=== PATIENT | female | born 1970 | race Two or more races ===

== ENCOUNTER → 2024-05-17 | Outpatient (CLI) | payer MEDICAID ==
[~2024-05-17] VITALS: Ht 167.6 cm; Wt 68.0 kg
== END | disposition home or self-care (01) ==
LOC: Rad HDHVI 14:30
PROVIDERS: ATTEND Internal Medicine Cardiovascular Disease
DX: I08.0 Rheumatic disorders of both mitral and aortic valves (principal); R07.89 Other chest pain; R06.02 Shortness of breath; E78.00 Pure hypercholesterolemia, unspecified; R42 Dizziness and giddiness; F17.210 Nicotine dependence, cigarettes, uncomplicated
CPT/HCPCS: 78452; 93017; 93306; 96374; A9500

== ENCOUNTER → 2024-05-18 | Outpatient (CLI) | payer MEDICAID | END | disposition home or self-care (01) | LOC: Rad HDHVI 14:10 | PROVIDERS: ATTEND Internal Medicine Cardiovascular Disease | DX: I10 Essential (primary) hypertension (principal); E78.5 Hyperlipidemia, unspecified; Z87.891 Personal history of nicotine dependence | CPT/HCPCS: 93880 ==

== ENCOUNTER → 2024-06-15 | Outpatient (CLI) | payer MEDICAID ==
[~2024-06-15] MED LIST: IODIXANOL 320MG/ML 100ML BTL IV ONE; SUMA50TA16 PO
[2024-06-15 08:57] VITALS: BP 144/80; PULSE 78; RESP 16; O2SAT 98
[2024-06-15 09:09] VITALS: BP 131/76; PULSE 73; RESP 16; O2SAT 98
== END | disposition home or self-care (01) ==
LOC: Rad HDHVI 08:54
PROVIDERS: ATTEND Internal Medicine Cardiovascular Disease
DX: R07.89 Other chest pain (principal); I50.9 Heart failure, unspecified
CPT/HCPCS: 71046; 93005; G0463

== ENCOUNTER 2024-06-16 10:49 | Day surgery (SDC) | payer MEDICAID ==
[2024-06-15 10:39] LABS: Basophils # (auto) 0 10 ^3/uL (0-0.2); Basophils % (auto) 0.4 % (0.0-2.0); Eosinophils # (auto) 0.2 10 ^3/uL (0-0.8); Eosinophils % (auto) 2.4 % (0.0-7.0); Hemoglobin 14.9 g/dL (12.2-16.2); Lymphocytes # (auto) 3.3 10 ^3/uL (0.4-5.4); Lymphocytes % (auto) 31.7 % (10.0-50.0); Mean Corpuscular Hemoglobin 33.5 pg (28.0-32.0); Mean Corpuscular Hgb Conc. 34.7 g/dL (32.0-36.0); Mean Corpuscular Volume 96.5 fL (80.0-100.0); Monocytes # (auto) 0.8 10 ^3/uL (0-1.3); Monocytes % (auto) 7.7 % (0.0-12.0); Neutrophils % (auto) 57.8 % (37.0-80.0); Red Blood Cells 4.45 10^6/uL (4.0-5.20); Red Cell Distribution Width 13.9 % (11.8-14.3); White Blood Cell 10.4 10^3/uL (4.4-10.8)
[2024-06-15 10:54] LABS: INR 0.95 (0.9-1.15); Partial Thromboplastin Time 26.9 SEC (24.5-34.5); Prothrombin Time 10.1 sec (9.3-11.8)
[2024-06-15 11:12] LABS: Anion Gap 6 (5-15); Calcium 10.2 mg/dL (8.7-10.4); Carbon Dioxide 25 mmol/L (20-30); Chloride 106 mmol/L (98-107); Potassium 4.4 mmol/L (3.5-5.1); Sodium 137 mmol/L (136-145)
[2024-06-15 11:18] LABS: BUN/Creatinine Ratio 18.1 (10.0-20.0); Blood Urea Nitrogen 15 mg/dL (9-23); Glucose 95 mg/dL (74-106)
[~2024-06-16] VITALS: Ht 167.6 cm; Wt 66.7 kg
[2024-06-16] VITALS (7 sets, daily range): BP systolic 133–168; BP diastolic 54–77; PULSE 53–72; RESP 14–17; TEMP 98; O2SAT 95–99
[2024-06-16] MEDS ORDERED: HEPARIN IN NS 1000Units/500mL 1,500 ML ONE (11:11)
[2024-06-16] MEDS ORDERED: IODIXANOL 320MG/ML 100ML BTL IV ONE (11:11)
[2024-06-16] MEDS ORDERED: fentaNYL CITRATE 100 MCG/2 ML VL ONE (11:48)
[2024-06-16] MEDS ORDERED: LIDOCAINE 2%HCL (LOCAL ANESTH.) INJ 20ML MDV ONE (11:48)
[2024-06-16] MEDS ORDERED: MIDAZOLAM HCL 2MG/2ML 2ml VIAL (1mg/ml) ONE (11:48)
[2024-06-16] MEDS ORDERED: ANGIOMAX 250 MG VIAL IV ONE (11:48)
[2024-06-16] MEDS ORDERED: IOHEXOL 350 MG/ML 100ML IJ ONE (11:48)
[2024-06-16] MEDS ORDERED: SUMA50TA16 PO (13:02)
[2024-06-16] MEDS: SUMAtriptan SUCCINATE 25 MG TAB PO PRN (14:05)
== END 2024-06-16 14:18 | disposition home or self-care (01) ==
LOC: CATH 10:49
PROVIDERS: ATTEND Internal Medicine Cardiovascular Disease
DX: R07.9 Chest pain, unspecified (principal); I11.0 Hypertensive heart disease with heart failure; I50.1 Left ventricular failure, unspecified; I07.1 Rheumatic tricuspid insufficiency; I42.8 Other cardiomyopathies; R06.09 Other forms of dyspnea; J44.9 Chronic obstructive pulmonary disease, unspecified; Z72.0 Tobacco use
CPT/HCPCS: 36415; 80048; 85025; 85610; 85730; 93458; C1760; C1894; J1644; J2250; J3010; J7030; Q9967; 99152

== ENCOUNTER → 2024-08-02 | Outpatient (CLI) | payer MEDICAID ==
[~2024-08-02] MED LIST changes: +ATOR20TA50 PO; +ATOR40TA52 PO; +CARV6.2517 PO; +CHOL20007 PO; +CLIN1CAP70 PO; +EPIN0.1I11 IJ; +FURO20TA4 GT; +HYDR-4798 PO; -IODIXANOL 320MG/ML 100ML BTL IV ONE; +POM; +POTA-215 PO
[2024-08-02 09:30] VITALS: BP 124/76; PULSE 71; RESP 16; O2SAT 98
[2024-08-02 09:54] VITALS: BP 132/75; PULSE 62; RESP 18; O2SAT 98
== END | disposition home or self-care (01) ==
LOC: Rad HDHVI 09:15
PROVIDERS: ATTEND Internal Medicine Cardiovascular Disease
DX: Z01.818 Encounter for other preprocedural examination (principal); I42.9 Cardiomyopathy, unspecified
CPT/HCPCS: 71046; 93005; G0463

== ENCOUNTER 2024-08-04 08:33 | Day surgery (SDC) | payer MEDICAID ==
[2024-08-02 12:44] LABS: Basophils # (auto) 0 10 ^3/uL (0-0.2); Eosinophils # (auto) 0.2 10 ^3/uL (0-0.8); Lymphocytes # (auto) 2.8 10 ^3/uL (0.4-5.4); Mean Corpuscular Volume 97.2 fL (80.0-100.0); Monocytes # (auto) 0.6 10 ^3/uL (0-1.3)
[2024-08-02 12:57] LABS: INR 1.02 (0.9-1.15); Partial Thromboplastin Time 27.4 SEC (24.5-34.5); Prothrombin Time 10.8 sec (9.3-11.8)
[2024-08-02 13:04] LABS: Anion Gap 5 (5-15); Carbon Dioxide 29 mmol/L (20-30); Chloride 107 mmol/L (98-107); Potassium 4.8 mmol/L (3.5-5.1); Sodium 141 mmol/L (136-145)
[2024-08-02 13:06] LABS: Calcium 10.5 mg/dL (8.7-10.4)
[2024-08-02 13:10] LABS: BUN/Creatinine Ratio 13.9 (10.0-20.0); Blood Urea Nitrogen 15 mg/dL (9-23); Glucose 85 mg/dL (74-106)
[2024-08-02 13:14] LABS: Basophils % (auto) 0.4 % (0.0-2.0); Eosinophils % (auto) 1.9 % (0.0-7.0); Hematocrit 44.8 % (36.0-46.0); Lymphocytes % (auto) 31.6 % (10.0-50.0); Mean Corpuscular Hemoglobin 34.8 pg (28.0-32.0); Mean Corpuscular Hgb Conc. 35.8 g/dL (32.0-36.0); Neutrophils # (auto) 5.2 10 ^3/uL (1.6-8.6); Neutrophils % (auto) 59.1 % (37.0-80.0); Nucleated Red Blood Cells % 0.1 %; Platelet Count (auto) 297 10^3/uL (140-450); Red Blood Cells 4.61 10^6/uL (4.0-5.20); Red Cell Distribution Width 13.4 % (11.8-14.3); White Blood Cell 8.7 10^3/uL (4.4-10.8)
[~2024-08-04] VITALS: Ht 167.6 cm; Wt 70.3 kg
[~2024-08-04 08:33] MED LIST changes: -ATOR40TA52 PO; -CLIN1CAP70 PO; -EPIN0.1I11 IJ; -HYDR-4798 PO
[2024-08-04] MEDS: VANCOMYCIN 1GM/200ML 200 ML IV ONE (09:27)
[2024-08-04] MEDS ORDERED: VANCOMYCIN HCL 1000 MG VL ONE (10:20)
[2024-08-04] MEDS ORDERED: LIDOCAINE 2%HCL (LOCAL ANESTH.) INJ 20ML MDV ONE (10:21)
[2024-08-04] MEDS ORDERED: MIDAZOLAM HCL 2MG/2ML 2ml VIAL (1mg/ml) ONE (10:21)
[2024-08-04] MEDS ORDERED: IODIXANOL 320MG/ML 100ML BTL IV ONE (10:21)
[2024-08-04] MEDS ORDERED: fentaNYL CITRATE 100 MCG/2 ML VL ONE (10:21)
[2024-08-04] MEDS ORDERED: FUROSEMIDE 20 MG/2 ML VIAL ONE (11:04)
[2024-08-04] MEDS ORDERED: HYDROmorphone HCL 2 MG/ML VL/or syr ONE (11:07)
[2024-08-04 11:30] VITALS: BP 143/84; PULSE 74; RESP 18; O2SAT 93
[2024-08-04 11:45] VITALS: BP 141/76; PULSE 74; RESP 20; O2SAT 94
[2024-08-04 12:00] VITALS: BP 131/71; PULSE 61; RESP 14; O2SAT 93
[2024-08-04 12:15] VITALS: BP 132/81; PULSE 69; RESP 15; O2SAT 94
[2024-08-04 12:30] VITALS: BP 127/82; PULSE 61; RESP 15; O2SAT 94
[2024-08-04 13:00] VITALS: BP 146/85; PULSE 64; RESP 15; O2SAT 98
== END 2024-08-04 13:14 | disposition home or self-care (01) ==
LOC: CATH 08:33
PROVIDERS: ATTEND Internal Medicine Cardiovascular Disease
DX: I42.0 Dilated cardiomyopathy (principal); I25.5 Ischemic cardiomyopathy; I11.0 Hypertensive heart disease with heart failure; I50.20 Unspecified systolic (congestive) heart failure
CPT/HCPCS: 33225; 33249; 36415; 71045; 80048; 85025; 85610; 85730; 93005; C1730; C1769; C1882; C1887; C1894; C1895; C1898; C1900; J1170; J1940; J2250; J3010; J3370; J7030; Q9967; 99152; 99153

== ENCOUNTER → 2024-08-05 | Outpatient (CLI) | payer MEDICAID ==
[~2024-08-05] MED LIST changes: +CLIN1CAP70 PO; +HYDR-4798 PO
== END | disposition home or self-care (01) ==
LOC: Rad HDHVI 10:20
PROVIDERS: ATTEND Internal Medicine Cardiovascular Disease
DX: Z01.818 Encounter for other preprocedural examination (principal); R06.02 Shortness of breath
CPT/HCPCS: 71046

== ENCOUNTER 2024-08-07 20:06 | Emergency (ER) | payer MEDICAID ==
[~2024-08-07] VITALS: Ht 167.6 cm; Wt 69.8 kg
[~2024-08-07 20:06] MED LIST changes: +ATOR40TA52 PO; -CLIN1CAP70 PO; +EPIN0.1I11 IJ; -HYDR-4798 PO
[2024-08-08 00:50] VITALS: BP 135/84; PULSE 74; RESP 17; TEMP 98.2; O2SAT 98
[2024-08-08] MEDS: HYDROcodone-ACET 10/325MG TAB PO ONE (01:23)
[2024-08-08] MEDS ORDERED: HYDR-4798 PO (02:16)
[2024-08-08] MEDS ORDERED: CLIN1CAP70 PO (02:16)
== END 2024-08-08 02:33 | disposition home or self-care (01) ==
LOC: ER 20:06
DX: S20.02XA Contusion of left breast, initial encounter (principal); N63.21 Unspecified lump in the left breast, upper outer quadrant; I50.9 Heart failure, unspecified; Z95.810 Presence of automatic (implantable) cardiac defibrillator; Z98.890 Other specified postprocedural states; Z88.0 Allergy status to penicillin; Z88.8 Allergy status to other drugs, medicaments and biological substances; Z79.899 Other long term (current) drug therapy; X58.XXXA Exposure to other specified factors, initial encounter; Y93.89 Activity, other specified; Y92.89 Other specified places as the place of occurrence of the external cause; Y99.8 Other external cause status
CPT/HCPCS: 76642

== ENCOUNTER → 2024-08-29 | Outpatient (CLI) | payer MEDICAID ==
[~2024-08-29] MED LIST changes: -ATOR40TA52 PO; +CLIN1CAP70 PO; -EPIN0.1I11 IJ; +HYDR-4798 PO
== END | disposition home or self-care (01) ==
LOC: Rad HDHVI 12:08
PROVIDERS: ATTEND Internal Medicine Cardiovascular Disease
DX: R06.02 Shortness of breath (principal); Z79.899 Other long term (current) drug therapy
CPT/HCPCS: 71046

== ENCOUNTER → 2024-11-14 | Outpatient (CLI) | payer MEDICAID ==
[~2024-11-14] MED LIST changes: +ATEN-60 PO; +FURO40TA4 PO; +LEVO500T91 PO; +PRED20TA2 PO
[2024-11-14 13:20] VITALS: BP 119/71; PULSE 83; RESP 18; O2SAT 92
[2024-11-14 13:25] VITALS: BP 120/69; PULSE 84; RESP 17; O2SAT 93
--- NOTE | 2024-11-14 14:21 | DVH ---
XY CHEST TWO VIEWS ROUTINE CLINICAL HISTORY: PRE OP/pain COMPARISON: XY CHEST TWO VIEWS ROUTINE on DOS: 08/29/24, XY CHEST TWO VIEWS ROUTINE on DOS: 08/19/24, X Y CHEST TWO VIEWS ROUTINE on DOS: 08/05/24, XY CHEST TWO VIEWS ROUTINE on DOS: 08/02/24, XY CHEST TWO V IEWS ROUTINE on DOS: 06/15/24 TECHNIQUE: Frontal and lateral view of the chest was obtained FINDINGS: Lines and Tubes: Left pacemaker. Lungs: No focal consolidation. Pleura: No effusion. No pneumothorax. Cardiomediastinal contours: Unremarkable Bones: No acute osseous abnormality. IMPRESSION: No acute cardiopulmonary disease.
== END | disposition home or self-care (01) ==
LOC: Rad HDHVI 13:08
PROVIDERS: ATTEND Internal Medicine Cardiovascular Disease
DX: Z01.818 Encounter for other preprocedural examination (principal); T82.120A Displacement of cardiac electrode, initial encounter; Y92.89 Other specified places as the place of occurrence of the external cause
CPT/HCPCS: 71046; 93005; G0463

== ENCOUNTER 2024-11-17 06:36 | Day surgery (SDC) | payer MEDICAID ==
[2024-11-14 15:54] LABS: Basophils # (auto) 0.1 10 ^3/uL (0-0.2); Basophils % (auto) 0.7 % (0.0-2.0); Eosinophils # (auto) 0.3 10 ^3/uL (0-0.8); Eosinophils % (auto) 3.4 % (0.0-7.0); Hematocrit 44.1 % (36.0-46.0); Hemoglobin 15.2 g/dL (12.2-16.2); Lymphocytes # (auto) 3.4 10 ^3/uL (0.4-5.4); Lymphocytes % (auto) 41.8 % (10.0-50.0); Mean Corpuscular Hemoglobin 33.3 pg (28.0-32.0); Mean Corpuscular Hgb Conc. 34.5 g/dL (32.0-36.0); Mean Corpuscular Volume 96.7 fL (80.0-100.0); Monocytes # (auto) 0.7 10 ^3/uL (0-1.3); Monocytes % (auto) 8.4 % (0.0-12.0); Neutrophils # (auto) 3.7 10 ^3/uL (1.6-8.6); Neutrophils % (auto) 45.7 % (37.0-80.0); Nucleated Red Blood Cells % 0.2 %; Platelet Count (auto) 241 10^3/uL (140-450); Red Blood Cells 4.56 10^6/uL (4.0-5.20); Red Cell Distribution Width 13.8 % (11.8-14.3)
[2024-11-14 16:31] LABS: INR 1.01 (0.9-1.15); Partial Thromboplastin Time 27.2 SEC (24.5-34.5); Potassium 4.8 mmol/L (3.5-5.1); Prothrombin Time 10.7 sec (9.3-11.8); Sodium 141 mmol/L (136-145)
[2024-11-14 16:32] LABS: Anion Gap 7 (5-15); Carbon Dioxide 26 mmol/L (20-31)
[2024-11-14 16:37] LABS: BUN/Creatinine Ratio 17.1 (10.0-20.0); Blood Urea Nitrogen 18 mg/dL (9-23); Glucose 91 mg/dL (74-106)
[2024-11-14 16:49] LABS: Calcium 10.5 mg/dL (8.7-10.4); Chloride 108 mmol/L (98-107)
[2024-11-17] VITALS (7 sets, daily range): BP systolic 99–130; BP diastolic 55–82; PULSE 56–78; RESP 11–15; TEMP 98.1; O2SAT 90–99
[~2024-11-17] VITALS: Ht 167.6 cm; Wt 69.4 kg
[~2024-11-17 06:36] MED LIST changes: -CARV6.2517 PO; -CLIN1CAP70 PO; -HYDR-4798 PO; -LEVO500T91 PO
[2024-11-17] MEDS ORDERED: fentaNYL CITRATE 100 MCG/2 ML VL ONE (09:20)
[2024-11-17] MEDS ORDERED: MIDAZOLAM HCL 2MG/2ML 2ml VIAL (1mg/ml) ONE ×2 (09:20→10:38)
[2024-11-17] MEDS ORDERED: VANCOMYCIN HCL 1000 MG VL ONE (09:20)
[2024-11-17] MEDS ORDERED: VANCOMYCIN 1GM/250ML KIT 250 ML IV ONE (09:21)
[2024-11-17] MEDS ORDERED: LIDOCAINE 2%HCL (LOCAL ANESTH.) INJ 20ML MDV ONE ×3 (09:21→10:04)
[2024-11-17] MEDS ORDERED: HYDROmorphone HCL 2 MG/ML VL/or syr ONE (10:00)
[2024-11-17] MEDS ORDERED: IOHEXOL 350 MG/ML 100ML IJ ONE (10:23)
[2024-11-17] MEDS ORDERED: ceFAZolin 1GM VL ONE (10:49)
[2024-11-17] MEDS ORDERED: diphenhdrAMINE HCL 50 MG/1 ML VL ONE (11:28)
[2024-11-17] MEDS ORDERED: methylPREDNISolone SOD SUCC 40 MG/ML VL ONE (11:33)
[2024-11-17] MEDS: methylPREDNISolone SOD SUCC 40 MG/ML VL IV ONE (11:36)
[2024-11-17] MEDS: diphenhdrAMINE HCL 50 MG/1 ML VL IV ONE (11:37)
--- NOTE | 2024-11-17 12:11 | DVH ---
EXAM: XY CHEST PORTABLE Indication: S/P ICD LEAD REVISION Technique: Single frontal view of the chest was obtained Comparison: XY CHEST PORTABLE on DOS: 08/04/24 FINDINGS: Lines and Tubes: Cardiac pacemaker projects over left chest wall. Lungs: No focal consolidation. Pleura: No effusion. No pneumothorax. Cardiomediastinal contours: Unremarkable Bones: No acute osseous abnormality. IMPRESSION: No acute cardiopulmonary disease.
--- NOTE | 2024-11-17 12:16 | DVHOP ---
DATE OF SURGERY: 11/17/2024 PROCEDURES PERFORMED: * Venography. * Extraction of the LV lead and implantation of new LV lead. * Repositioning of the RV lead shock lead. * Repositioning of the RA lead. * Conscious sedation. INDICATIONS: The patient with dilated cardiomyopathy, EF less than 30%, had undergone Bi-V AICD implantation on 08/04/2024. The leads were secured adequately, but over a month the leads were all retracted. On examining the leads closely and while revising the pocket and the lead, it became very clear that the patient has been manipulating the leads. The tremendous amount of tension was noted in the leads at the time of extraction. Once the sutures were cut, the leads recoiled back into the appropriate position, leading to believe the patient has been retracting the lead manually. Furthermore, it became clear that the LV lead especially has been twisted multiple times, so much so that we were not able to pass a wire or the stylet into the lead at the time of the repositioning. Therefore the LV lead needed to be extracted and a new LV lead needed to be positioned. This is indicative of the patient manipulating and twisting the leads. The patient is very noncompliant. She has been seen in the clinic almost 10 times since her implantation of the lead in 07/2024. Not only in the clinic, she has also been seen in the Emergency Room several occasion for unclear reasons. Because of her manipulating the pacemaker and the leads, the patient may have even had shocks delivered because of inappropriate sensing. DESCRIPTION OF PROCEDURE: The patient was prepped and draped in a sterile condition. 1% Xylocaine used to anesthetize the left subclavicular region. Once adequate anesthesia was attained, almost 50 mL of subcutaneous lidocaine was given because the patient was having significant intolerance to pain. The venography was performed. The left subclavian vein was engaged. A guidewire was then appropriately positioned. Using a #10 blade, linear incision was made using blunt dissection and electrocautery. The pocket was exposed. The leads were exposed as well. We were then slowly repositioned the RV lead. The moment, RV lead suture was released, the patient's RV lead recoiled back into appropriate position, clearly demonstrating significant tension that was put on the lead. Similarly with the RA lead, once the sutures were removed, the lead sprung back into appropriate position. Again, indicative of the tremendous tension being placed on the lead from physical manipulation of the lead by the patient. The RA lead on the other hand was extremely twisted when we released and therefore we had to put a new RA lead and because of the damage to the insulation and we were not able to pass any stylet nor will be able to pass any 014 wire through the lead. The lead was extracted with countertraction. Coronary sinus catheters were placed via a 10.5-Kinyarwanda sheath and coronary sinus was cannulated. New LV lead then appropriately positioned. All leads were then resecured with three sutures on each of the lead, to prevent this retraction. Threshold parameters obtained. The sutures we used were 0 Ethibond. Following that, the pacemaker device was then reimplanted. Pocket was irrigated and it was closed using 3-0 Monoderm subcutaneous sutures and 3-0 Monoderm subcuticular sutures. The device itself were again reinforced using chest pressure device. So that she will not acutely be able to manipulate the leads. IV Ancef 1 gram was installed into the pocket itself again to reduce the risk of infection because I am convinced that she will again manipulate the lead and the higher risk of infection, the patient also will be put on antibiotics as well. CONCLUSION: The patient had repositioning the RV lead, RA lead, extraction of the LV lead and implantation new LV lead. The patient, however, had the same device implanted. There were no complications. The patient tolerated the procedure well. THRESHOLD PARAMETERS: The patient's atrial lead was Solia S45, model #[id number]. RV lead is Plexa SD 65-18, serial #[id number]. LV lead that was explanted Sentus QP 85, serial #[id number]. The new LV lead implanted is Sentus ProMRI OTW L85. Model #289931, serial #[id number]. The device is Rivacor 7 HF-T QP [id number]. Threshold parameters of atrium, P-wave amplitude of 2.5 millivolts, threshold of 1.4 volts at 0.4 milliseconds pulse duration, pacing impedance of 615 ohms. Right ventricular lead, R-wave amplitude of 18.4 millivolts, threshold of 0.9 volts at 0.4 milliseconds pulse duration, pacing impedance of 539 ohms, shocking impedance of 42 ohms. LV lead, R-wave amplitude of 9.0 millivolts, threshold of 1.9 volts at 1 millisecond, pacing impedance of 637 ohms. CONCLUSION: The patient has successful implantation of Bi-V AICD extraction of LV lead, implantation of new LV lead. Ton Francisco MD SA/DEANA TID: [id number] RECEIPT: [id number]
--- NOTE | 2024-11-17 13:12 | DVHDS ---
DATE OF DISCHARGE: 11/17/2024 DISCHARGE DIAGNOSIS: The patient with explantation LV lead and implantation new LV lead. Repositioning of the RV and RA leads. It became obvious the patient has been manipulating the pacemaker device. Tremendous tension has been noted on the leads. When we relieved the suture, the leads all sprung back into position and therefore very little manipulation of the RV and RA lead was needed to reposition the leads. The leads were then again sutured 3 times with 0 Ethibond. LV lead on the other hand was twisted so many times that it had damaged and we were not able to pass any stylet or 0.014 wires into the lead. Therefore, we had to extract the lead. Following that, a new LV lead was then implanted. Threshold parameters obtained. The patient's pacemaker/AICD is just a backup mode at this point, since the patient is not dependent on the device, and since the patient has a tendency to manipulate the leads, we elected to put the pacemaker/AICD in a backup mode even though she has a Bi-V. Adequate antibiotics have been given to the patient for 7 weeks to avoid any infection. Pressure device was placed so that she would not manipulate the leads or other device acutely. At least for a week, the pressure device will be left on. Follow up with me in 1 week. Stable at the time of discharge. DISPOSITION: Home. ACTIVITY: As instructed. DIET: Will be 2 gram sodium diet. The patient is to continue all home medication except for any anticoagulation and the patient will be put on Levaquin 500 daily x 7 days. Ton Francisco MD SA/SAMMY/EMRE TID: [id number] RECEIPT: [id number]
[2024-11-17] MEDS ORDERED: LEVO500T91 PO (14:27)
--- NOTE | 2024-11-17 18:09 | DVHHP ---
ADMIT DATE: 11/17/2024 HISTORY OF PRESENT ILLNESS: The patient who is 53 years old with a history of dilated cardiomyopathy, normal coronary anatomy, ejection-fraction of 30%. The patient has been admitted on numerous occasions since the implantation of the Bi-V AICD to the Emergency Room and has also been seen on numerous occasions in the clinic as well. Initially after the device was implanted, she was complaining there was an infection. There was no infection in the lead nor in the pocket, nor in the skin. Empirically, the patient was put on antibiotics. Since the device was implanted, she has been complaining of many issues including chest pain, palpitations and device shocking. Every time we have seen initially about a month after the device was placed, the LV lead was displaced. Then following that, there was retraction of the RV lead and RA leads noted on chest x-ray as well. It is clear that the patient has been manipulating the leads for this malfunction. She is very noncompliant. She is drug seeking as well. The patient has been seen and set in [facility] numerous occasions, she has actually been admitted as well and now she is insistent on replacing the lead because psychologically she is convinced that the LV lead not being in position and is causing her symptoms. The LV lead parameters have been discontinued or switched off and therefore, there is no reason for her to have any irritation. There were no PVCs, PACs documented. The lead was still in the coronary sinus, and therefore, there is no chance of any irritability from the coronary sinus lead in itself. This is psychologically, the patient is convinced that was causing her chest pain and because of that, we elected to reposition again the RV lead and the LV lead since they also appeared to be retracted, although they are functioning appropriately. PERTINENT MEDICAL HISTORY: Significant for tobacco use, COPD. Echocardiogram shows ejection fraction of 30%. She denies any fever or chills, melena, hematochezia, hematemesis, hemoptysis. She had one episode of apparent shock delivered by the device. Also chest pain, shortness of breath, palpitations. All evaluation has been negative. Evaluating the permanent AICD at the time of the palpitations revealed no SVT or VT and strokes have always been negative. Coronary angiography showed normal coronary anatomy, therefore, unlikely to have chest pain related to coronary artery disease. She has in fact complained to the insurance company that we were not paying attention to her. Despite the fact that she has been seen in the clinic almost 10 times almost on a weekly basis initially for apparent infection, which she did not have, subsequently for chest pain and palpitation. Multiple ER visits in addition to clinic visits. PHYSICAL EXAMINATION: VITAL SIGNS: Blood pressure is 132/80, pulse of 70 and regular, O2 saturation 98%. HEENT/NECK: Pupils are equal, reactive. Neck is supple. Carotid pulses are 2+ symmetrical. Sclerae anicteric. Oral mucosa moist. Posterior pharynx without any exudate. No nuchal rigidity. Carotid pulses are 2+ symmetrical. No cervical adenopathy, no supraclavicular adenopathy. PULMONARY: Diffuse scattered rhonchi. Otherwise, unremarkable. CARDIOVASCULAR: Regular rate. PMI is slightly diffuse, laterally and inferiorly displaced. ABDOMEN: Soft. No epigastric tenderness, no suprapubic tenderness, no CVA tenderness. Stool guaiac negative. NEUROLOGIC: The patient is intact. ASSESSMENT AND PLAN: Thus, the patient with dilated cardiomyopathy, history of chronic obstructive pulmonary disease, tobacco use, now with displaced LV lead and retracted RV lead and RA lead, although RV and RA leads have still normal function. The patient is to undergo revision and extraction of the LV lead and implantation of new LV lead if we are not able to reposition the LV lead. We will try to reposition the RV lead and RA lead. All it needs is . We will make further recommendations after the procedure. Ton Francisco MD SA/BRAD/GUERITA TID: [id number] RECEIPT: [id number]
--- NOTE | 2024-11-21 14:02 | ECG ---
[facility] Test Date: 2024-11-17 Test Time: 11:15:16 Pat Name: ISAK MALCOLM Department: Room: Gender: F Emergency Room Physician: Amanuel GRAF : 1970 Requested By: ISIDORO FERRER Order Number: [id number] Reading MD: Magdalena Barry Measurements Intervals [place] Rate: 80 P: 70 [place]: 142 QRS: 6 QRSD: 104 T: 57 QT: 412 QTc: 475 Interpretive Statements Electronic ventricular pacemaker Normal sinus rhythm Electronically Signed On 11-21-2024 22:07:36 PST by Magdalena Barry Please click the below link to view image of tracing.
== END 2024-11-17 13:05 | disposition home or self-care (01) ==
LOC: CATH 06:36
PROVIDERS: ATTEND Internal Medicine Cardiovascular Disease
DX: T82.120A Displacement of cardiac electrode, initial encounter (principal); I42.0 Dilated cardiomyopathy; R79.1 Abnormal coagulation profile; I10 Essential (primary) hypertension; J44.9 Chronic obstructive pulmonary disease, unspecified; Z72.0 Tobacco use; Z95.810 Presence of automatic (implantable) cardiac defibrillator; Z88.0 Allergy status to penicillin; Z88.5 Allergy status to narcotic agent; Z88.8 Allergy status to other drugs, medicaments and biological substances; Y84.9 Medical procedure, unspecified as the cause of abnormal reaction of the patient, or of later complication, without mention of misadventure at the time of the procedure
CPT/HCPCS: 33216; 33244; 33273; 36415; 71045; 80048; 85025; 85610; 85730; 93005; C1769; C1887; C1900; J0690; J1171; J1200; J2250; J2919; J3010; J3370; Q9967; 99152; 99153

== ENCOUNTER → 2024-11-18 | Outpatient (CLI) | payer MEDICAID ==
[~2024-11-18] MED LIST changes: +CARV6.2517 PO; +LEVO500T91 PO
--- NOTE | 2024-11-18 13:38 | DVH ---
EXAM: XY CHEST TWO VIEWS ROUTINE CLINICAL HISTORY: POST OP SOB COMPARISON: XY CHEST TWO VIEWS ROUTINE on DOS: 11/14/24, XY CHEST TWO VIEWS ROUTINE on DOS: 08/29/24, XY CHEST TWO VIEWS ROUTINE on DOS: 08/19/24, XY CHEST TWO VIEWS ROUTINE on DOS: 08/05/24, XY CHEST TWO VIEWS ROUTINE on DOS: 08/02/24 TECHNIQUE: Frontal and lateral view of the chest was obtained FINDINGS: Lines and Tubes: Cardiac pacemaker projects over left chest wall. Lungs: No focal consolidation. Pleura: No effusion. No pneumothorax. Cardiomediastinal contours: Unremarkable Bones: No acute osseous abnormality. IMPRESSION: No acute cardiopulmonary disease.
== END | disposition home or self-care (01) ==
LOC: Rad HDHVI 10:05
PROVIDERS: ATTEND Internal Medicine Cardiovascular Disease
DX: R06.02 Shortness of breath (principal)
CPT/HCPCS: 71046

== ENCOUNTER 2024-11-20 14:37 | Inpatient (IN) | payer MEDICAID ==
[~2024-11-20] VITALS: Ht 167.6 cm; Wt 68.7 kg
[~2024-11-20 14:37] MED LIST changes: -CARV6.2517 PO
--- NOTE | 2024-11-20 15:32 | ECG ---
[facility] Test Date: 2024-11-20 Test Time: 15:31:11 Pat Name: ISAK MALCOLM Department: ER Room: Gender: F Senior Net C Developer: GP : 1970 Requested By: CLYDE FOSTER Order Number: [id number] Reading MD: Apolinar Norwood Measurements Intervals [place] Rate: 93 P: 145 OK: 133 QRS: 38 QRSD: 103 T: 0 QT: 382 QTc: 476 Interpretive Statements Atrial-sensed ventricular-paced complexes No further analysis attempted due to paced rhythm Electronically Signed On 11-20-2024 16:44:25 PST by Apolinar Norwood Please click the below link to view image of tracing.
[2024-11-20 16:12] LABS: Basophils # (auto) 0.1 10 ^3/uL (0-0.2); Basophils % (auto) 0.6 % (0.0-2.0); Eosinophils # (auto) 0.2 10 ^3/uL (0-0.8); Lymphocytes # (auto) 3.6 10 ^3/uL (0.4-5.4); Lymphocytes % (auto) 36.3 % (10.0-50.0); Mean Corpuscular Volume 97.2 fL (80.0-100.0); Monocytes # (auto) 0.7 10 ^3/uL (0-1.3); Monocytes % (auto) 7.4 % (0.0-12.0); Neutrophils # (auto) 5.3 10 ^3/uL (1.6-8.6); Neutrophils % (auto) 53.7 % (37.0-80.0); Nucleated Red Blood Cells % 0.1 %; Platelet Count (auto) 265 10^3/uL (140-450); Red Blood Cells 4.83 10^6/uL (4.0-5.20); Red Cell Distribution Width 13.8 % (11.8-14.3); White Blood Cell 9.8 10^3/uL (4.4-10.8)
--- NOTE | 2024-11-20 16:14 | DVH ---
CHEST RADIOGRAPH Indication: sob Technique: Single frontal view of the chest was obtained Comparison: XY CHEST PORTABLE on DOS: 11/18/24 FINDINGS: Lines and Tubes: AICD. Lungs: No focal consolidation. Pleura: No effusion. No pneumothorax. Cardiomediastinal contours: Unremarkable Bones: No acute osseous abnormality. IMPRESSION: 1. No acute cardiopulmonary disease.
--- NOTE | 2024-11-20 16:15 | ED.PDOC ---
History of Present Illness HPI Comments 53 y/o F, with a Hx of CHF, AFIB, AICD, and pacemaker, presents with c/o of lower-left chest pain, today. Patient comments on pain onset with breathing after, recently, having a AICD lead revision by Isidoro Francisco MD on 11/17/24. She denies having any shortness of breath, palpitations, dizziness, or other associated symptoms or modifiers at this time. Chief Complaint: Chest Pain Time Seen by MD: 15:30 Primary Care Provider: ISIDORO Reviewed Notes: Nurses Notes, Medications, Allergies Allergies: Coded Allergies: Cephalexin (Verified Allergy, Unknown, Hives, 11/14/24) Oxycodone (Verified Allergy, Unknown, 11/14/24) Penicillins (Verified Allergy, Unknown, 11/14/24) Uncoded Allergies: SHIMP (Adverse Reaction, Unknown, 05/17/24) Home Meds Reported Medications Prednisone (Prednisone) 20 Mg Tab, 20 MG PO PRN for SWELLING, MG 11/14/24 Patients Own Medication (PATIENTS OWN MEDICATION) ., PRN for EPIPEN PTS OWN MED-OBTAIN FROM PT AND SEND TO RX DRUG: FREQ: RX# EXP: DATE DISP: TECH: RPH: 08/02/24 Atorvastatin Calcium (ATORVASTATIN CALCIUM) 20 Mg Tab, 1 TAB PO DAILY for high cholesterol, #30 TAB 5 Refills 08/02/24 Cholecalciferol (VITAMIN D3) 2,000 Unit Tab, 1 TAB PO DAILY, #30 TAB 5 Refills 08/02/24 Potassium Chloride (Klor-Con M10) 10 Meq Tab, 1 TAB PO DAILY, #30 TAB 5 Refills 08/02/24 Furosemide (Furosemide) 20 Mg Tab, 20 MG GT DAILY for edema, TAB 08/02/24 Sumatriptan Succinate (Sumatriptan Succinate) 50 Mg Tab, 1 TAB PO DAILY PRN for FOR HEADACHE MDD 100 mg May repeat after 15 minutes if no relief from first dose. 06/16/24 Information Source: Patient Mode of Arrival: Ambulatory Severity: Moderate Timing: Hours Duration: Since onset Prehospital treatment: None Past Medical History PAST MEDICAL HISTORY: AFIB, CHF Surgical History: Pacemaker Surgical History (Other): AICD COST MANAGER History: Denies all COST MANAGER Hx Family History Family History: Family hx of heart bucky Social History Smoker: Non-Smoker Alcohol: Denies ETOH Use Drugs: Denies Drug Use Lives In: Home Cardiovascular: reports: chest pain (left lower chest pain ) All Other Systems: Reviewed and Negative (negative unless otherwise stated above or in HPI) Physical Exam General Appearance: Moderate Distress HEENT: Normal ENT Inspection, Pharynx Normal, TMs Normal Neck: Full Range of Motion, Non-Tender, Normal, Normal Inspection Respiratory: Chest Non-Tender, Lungs Clear, No Accessory Muscle Use, No Respiratory Distress, Normal Breath Sounds Cardiovascular: No Edema, No JVD, No Murmur, No Gallop, Normal Peripheral Pulses, Regular Rate/Rhythm Breast Exam: Deferred Gastrointestinal: No Organomegaly, Non Tender, No Pulsatile Mass, Normal Bowel Sounds, Soft Genitalia: Deferred Pelvic: Deferred Rectal: Deferred Extremities: No calf tenderness, Normal capillary refill, Normal inspection, Normal range of motion, Non-tender, No pedal edema Musculoskeletal : Apperance: Normal Neurologic: Alert, pyroglazer II-XII nml as Tested, No Motor Deficits, Normal Affect, Normal Mood, No Sensory Deficits Cerebellar Function: Normal Reflexes: Normal Skin: Dry, Normal Color, Warm Peripheral Pulses: 3+ Radial (R), 3+ Radial (L) Lymphatic: No Adenopathy Was a procedure done? Was a procedure done?: No EKG EKG : Pulse Rate (adult): 93 [place]: Normal Cardiac Rhythm: Paced (atrial-sensed ventricular-paced complexes) Block: None Hypertrophy: None ST: Normal Differential Dx Considerations may include: post-op complication, AICD malfunction, pacemaker malfunction X-Ray, Labs, Meds, VS Vital Signs Date Time Temp Pulse Resp B/P (MAP) Pulse Ox O2 Delivery O2 Flow Rate FiO2 11/20/24 16:15 93 11/20/24 15:31 93 11/20/24 15:25 97.6 99 18 112/73 (86) 96 Lab Test 11/20/24 15:51 Range/Units White Blood Count 9.8 4.4-10.8 10^3/uL Red Blood Count 4.83 4.0-5.20 10^6/uL Hemoglobin 16.0 12.2-16.2 g/dL Hematocrit 47.0 H 36.0-46.0 % Mean Corpuscular Volume 97.2 80.0-100.0 fL Mean Corpuscular Hemoglobin 33.0 H 28.0-32.0 pg Mean Corpuscular Hemoglobin Concent 34.0 32.0-36.0 g/dL Red Cell Distribution Width 13.8 11.8-14.3 % Platelet Count 265 140-450 10^3/uL Mean Platelet Volume 7.7 6.9-10.8 fL Neutrophils (%) (Auto) 53.7 37.0-80.0 % Lymphocytes (%) (Auto) 36.3 10.0-50.0 % Monocytes (%) (Auto) 7.4 0.0-12.0 % Eosinophils (%) (Auto) 2.0 0.0-7.0 % Basophils (%) (Auto) 0.6 0.0-2.0 % Neutrophils # (Auto) 5.3 1.6-8.6 10 ^3/uL Lymphocytes # (Auto) 3.6 0.4-5.4 10 ^3/uL Monocytes # (Auto) 0.7 0-1.3 10 ^3/uL Eosinophils # (Auto) 0.2 0-0.8 10 ^3/uL Basophils # (Auto) 0.1 0-0.2 10 ^3/uL Nucleated Red Blood Cells 0.1 % Sodium Level Pending Potassium Level Pending Chloride Level Pending Carbon Dioxide Level Pending Anion Gap Pending Blood Urea Nitrogen Pending Creatinine Pending Glomerular Filtration Rate Calc Pending BUN/Creatinine Ratio Pending Serum Glucose Pending Calcium Level Pending Troponin I High Sensitivity Pending Patient alert. Complaining of chest pain. Vitals stable. Answering all questions. EKG does not reveal any acute process. WBC within normal limits. Hemoglobin within normal limits. Recently had a pacemaker placed. Pacemaker misfiring. Pacemaker to be evaluated. Chest x-ray reviewed does not show any acute changes. Reviewed her previous visit. Explained to the patient. Continue cardiac monitoring. Time of 1ST Reevaluation: 16:00 Reevaluation 1ST: Unchanged Patient Education/Counseling: Diagnosis, Treatment Family Education/Counseling: No Family Present Departure 1 Departure Time of Disposition: 16:18 Impression: Primary Impression: Pacemaker malfunction Qualified Codes: T82.111A - Breakdown (mechanical) of cardiac pulse generator (battery), initial encounter Additional Impression: History of placement of internal cardiac defibrillator Disposition: ADMITTED INPATIENT Admit to: Med Surg Condition: Guarded Critical Care Note Critical Care Time?: No Stability Stability form required: No Heart Score Heart Score: Heart Score Response (Comments) Value History Slightly Suspicious 0 EKG Normal 0 Age 45-64 1 Risk Factors 1 or 2 risk factors 1 Troponin N/A 0 Total 2 I personally scribed for CLYDE FOSTER MD ([email or web address]) on 11/20/24 at 16:15. Electronically submitted by Abhinav Cain ([email or web address]). CLYDE FOSTER MD Nov 20, 2024 16:15
[2024-11-20 16:22] LABS: Chloride 104 mmol/L (98-107); Potassium 4.3 mmol/L (3.5-5.1); Sodium 138 mmol/L (136-145)
[2024-11-20 16:23] LABS: Anion Gap 6 (5-15); Carbon Dioxide 28 mmol/L (20-31)
[2024-11-20 16:28] LABS: BUN/Creatinine Ratio 17.2 (10.0-20.0); Blood Urea Nitrogen 16 mg/dL (9-23); Glucose 95 mg/dL (74-106)
[2024-11-20 16:30] LABS: Calcium 10.8 mg/dL (8.7-10.4)
[2024-11-20] MEDS ORDERED: MORPHINE SULFATE INJ 2 MG/ml SYRG IV PRN (23:00)
[2024-11-20 23:30] VITALS: BP 104/72; PULSE 85; RESP 20; TEMP 97.8; O2SAT 96
[2024-11-20 23:40] VITALS: PULSE 78; RESP 16; O2SAT 98
[2024-11-21 01:00] VITALS: BP 119/65; PULSE 72; RESP 20; TEMP 98; O2SAT 96
[2024-11-21 01:36] LABS: INR 1.03 (0.9-1.15); Partial Thromboplastin Time 27.6 SEC (24.5-34.5); Prothrombin Time 10.9 sec (9.3-11.8)
[2024-11-21 02:49] LABS: Urine Bacteria None Seen /hpf (None Seen)
[2024-11-21 03:12] LABS: Urine Blood 1+ /uL (Negative); Urine Clarity Clear (Clear); Urine Color Yellow (Yellow); Urine Mucus FEW (None Seen); Urine Protein, UAD Negative (Negative); Urine Specific Gravity 1.026 (1.001-1.035); Urine Squamous Epithelial Cell FEW /hpf (<5); Urine Urobilinogen Normal (Negative); Urine WBC 2 /hpf (0 - 5); Urine pH 5.5 (5.0-9.0)
[2024-11-21 03:24] LABS: Amphetamine Screen, Urine Neg (NEGATIVE); Benzodiazephine Screen, Urine Neg (NEGATIVE)
[2024-11-21 03:33] LABS: Barbiturate Scree,Urine Neg (NEGATIVE); Cannabinoid Screen, Urine Neg (NEGATIVE); Cocaine Screen, Urine Neg (NEGATIVE); Opiate Scree,Urine Neg (NEGATIVE); Phencyclidine Screen, Urine Neg (NEGATIVE)
--- NOTE | 2024-11-21 03:49 | DVHHPRES ---
History of Present Illness Resident Creating Document: BRUNA PHILLIPSRADHA RESIDENT History of Present Illness Patient is a 53-year-old female with a past medical history as described below came to the ED with a chief complaint of chest pain for 2 days prior to admission. Patient reported that on 17 of November she got a AICD lead revision by who is her manager style and that evening since the time she went on she has been experiencing sudden shock-like thumping chest pain in the left lower chest whenever she inhales and exhales, chest pain is nonradiating, no exacerbating relieving factors, no variation with movement or deep breaths. Patient denied shortness of breath, palpitations, sweating, nausea, vomiting. Past medical history: Heart failure with reduced ejection fraction Past surgical history: Coronary angiography, AICD, pacemaker Social history: Patient has a 4 pack year smoking history, currently smokes occasional, denied drug or alcohol use Home medications: Patient does not have a list of home medications with the according to the EMR the reason leave prescribed meds, carvedilol 6.25 mg b.i.d., atenolol 50 mg, furosemide 40 mg Review of Systems Review of Systems Patient reports thumping shock-like chest pain in the lower left chest every time she inhales and exhales. Denies shortness of breath, dizziness, palpitations, nausea, vomiting, headache, abdominal pain Allergies: Coded Allergies: Cephalexin (Verified Allergy, Unknown, Hives, 11/14/24) Oxycodone (Verified Allergy, Unknown, 11/14/24) Penicillins (Verified Allergy, Unknown, 11/14/24) Uncoded Allergies: SHIMP (Adverse Reaction, Unknown, 05/17/24) Medications Current Medications Medications Dose Ordered Sig/Emili Route Start Time Stop Time Status Last Admin Dose Admin Morphine Sulfate 2 mg Q30M PRN IV 11/20/24 23:00 Levofloxacin 500 mg DAILY PO 11/21/24 10:00 Carvedilol 3.125 mg Q12HR PO 11/21/24 10:00 Furosemide 20 mg DAILY PO 11/21/24 10:00 Exam Vital Signs Vital Signs Date Time Temp Pulse Resp B/P (MAP) Pulse Ox O2 Delivery O2 Flow Rate FiO2 11/21/24 03:17 66 11/21/24 01:00 98.0 20 119/65 (83) 96 98.0 11/20/24 23:40 Room Air* 0 21 Exam Physical Examination Constitutional: Patient was alert and oriented to time, place and person and does not appear to be any acute distress. Gen - no pallor, no icterus, no cyanosis, no clubbing, no LAD, no edema . Skin - Patients skin is warm and dry. HEENT - normocephalic, atraumatic, moist mucous membranes. Neck - full ROM, no LAD, no JVD Pulmonary - B/L vesicular breath sounds. no crackles , no wheezing, no stridor. cardiovascular - normal S1,S2 heard. no murmurs heard. peripheral pulses radial 2+, pedal 2+. GI - soft abdomen without tenderness to palpation . no hepatospleenomegaly. Bowel sounds normoactive Neurological - Bilateral upper extremity strength 5/5, bilateral lower extremity strength 5/5, no facial droop, normal speech, no tremor, no sensory deficiets. Labs/Xrays Labs Test 11/21/24 01:00 11/21/24 00:25 11/20/24 15:51 Range/Units Urine Color Yellow Yellow Urine Clarity Clear Clear Urine pH 5.5 5.0-9.0 Urine Specific [place] 1.026 1.001-1.035 Urine Protein Negative Negative Urine Ketones Negative Negative Urine Blood 1+ H Negative /uL Urine Nitrite Negative Negative Urine Bilirubin Negative Negative Urine Urobilinogen Normal Negative mg/dL Urine Leukocyte Esterase Negative Negative /uL Urine RBC 7 0 - 4 /hpf Urine WBC 2 0 - 5 /hpf Urine Squamous Epithelial Cells Few <5 /hpf Urine Bacteria None seen None Seen /hpf Urine Mucus Few None Seen Urine Glucose Normal Normal mg/dL Urine Opiates Screen Neg NEGATIVE Urine Fentanyl Screen Neg NEGATIVE Urine Barbiturates Screen Neg NEGATIVE Urine Phencyclidine Screen Neg NEGATIVE Urine Amphetamines Screen Neg NEGATIVE Urine Benzodiazepines Screen Neg NEGATIVE Urine Cocaine Screen Neg NEGATIVE Urine Cannabinoids Screen Neg NEGATIVE Prothrombin Time 10.9 9.3-11.8 sec Prothrombin Time INR 1.03 0.9-1.15 Activated Partial Thromboplast Time 27.6 24.5-34.5 SEC Troponin I High Sensitivity 11 </=34 ng/L B-Type Natriuretic Peptide 9.91 0-100 pg/mL Thyroid Stimulating Hormone (TSH) 3.01 0.55-4.78 uIU/mL White Blood Count 9.8 4.4-10.8 10^3/uL Red Blood Count 4.83 4.0-5.20 10^6/uL Hemoglobin 16.0 12.2-16.2 g/dL Hematocrit 47.0 H 36.0-46.0 % Mean Corpuscular Volume 97.2 80.0-100.0 fL Mean Corpuscular Hemoglobin 33.0 H 28.0-32.0 pg Mean Corpuscular Hemoglobin Concent 34.0 32.0-36.0 g/dL Red Cell Distribution Width 13.8 11.8-14.3 % Platelet Count 265 140-450 10^3/uL Mean Platelet Volume 7.7 6.9-10.8 fL Neutrophils (%) (Auto) 53.7 37.0-80.0 % Lymphocytes (%) (Auto) 36.3 10.0-50.0 % Monocytes (%) (Auto) 7.4 0.0-12.0 % Eosinophils (%) (Auto) 2.0 0.0-7.0 % Basophils (%) (Auto) 0.6 0.0-2.0 % Neutrophils # (Auto) 5.3 1.6-8.6 10 ^3/uL Lymphocytes # (Auto) 3.6 0.4-5.4 10 ^3/uL Monocytes # (Auto) 0.7 0-1.3 10 ^3/uL Eosinophils # (Auto) 0.2 0-0.8 10 ^3/uL Basophils # (Auto) 0.1 0-0.2 10 ^3/uL Nucleated Red Blood Cells 0.1 % Sodium Level 138 136-145 mmol/L Potassium Level 4.3 3.5-5.1 mmol/L Chloride Level 104 98-107 mmol/L Carbon Dioxide Level 28 20-31 mmol/L Anion Gap 6 5-15 Blood Urea Nitrogen 16 9-23 mg/dL Creatinine 0.93 0.550-1.02 mg/dL Glomerular Filtration Rate Calc 74 >90 mL/min BUN/Creatinine Ratio 17.2 10.0-20.0 Serum Glucose 95 74-106 mg/dL Calcium Level 10.8 H 8.7-10.4 mg/dL Assessment/Plan Assessment/Plan # Acute chest pain, r/o ACS # ? Pacemaker malfunction s/p AICD lead revision - troponins trended WNL - 12 lead ECG showed atrial sensed ventricular rhythm showing no evidence of acute ST segment or T wave changes - continued on levofloxacin 500 mg daily -given on discharge on 11/17/2024 for 7 days. - consulted - patient admitted to telemetry # heart failure with reduced ejection fraction, no exacerbation - continued on low-dose of carvedilol at 3.125 mg b.i.d. - on furosemide 20 mg daily Goals of care discussed with the patient for over 21 minutes. Full code Plan discussed with Dr. Lomax Plan discussed with: Patient My Orders Orders - LEON PHILLIPS Procedure Category Date Status Time Admit ADMIT 11/20/24 Transmitted 22:55 Stat Ekg For Chest [facility] 11/20/24 In Process Pain 22:55 Notify Md Of Changes [facility] 11/20/24 In Process From Base 22:55 Fine Wire Drawer For [facility] 11/20/24 In Process 24 Hours 22:55 Emergency Dysrhythmia [facility] 11/20/24 In Process Protocol 22:55 Morphine Sulfate [facility] 11/20/24 In Process Injection 23:00 Complete Blood Count LAB 11/21/24 Logged 04:00 Comprehensive LAB 11/21/24 Logged Metabolic Panel 04:00 *Consult Dr. Camilo CONS 11/20/24 Transmitted [place] 23:44 Levofloxacin Tablet PHA 11/21/24 In Process (Levaquin Tablet) 10:00 Regular Diet DIET 11/21/24 Transmitted Breakfast Carvedilol Tablet PHA 11/21/24 In Process (Coreg Tablet) 10:00 Furosemide Tablet PHA 11/21/24 In Process (Lasix Tablet) 10:00 Code Status CODE 11/21/24 Transmitted 03:48 Date of Service: Nov 20, 2024 Billing Provider: FLASH LOMAX MD Common Visit Codes: [id number] INP/OBS CARE (HIGH) LEON PHILLIPS RESIDENT Nov 21, 2024 03:49 FLASH LOMAX MD Nov 22, 2024 10:43
[2024-11-21 04:51] LABS: Basophils # (auto) 0 10 ^3/uL (0-0.2); Basophils % (auto) 0.5 % (0.0-2.0); Eosinophils # (auto) 0.3 10 ^3/uL (0-0.8); Eosinophils % (auto) 3.2 % (0.0-7.0); Hematocrit 44.1 % (36.0-46.0); Hemoglobin 15.2 g/dL (12.2-16.2); Lymphocytes % (auto) 40.1 % (10.0-50.0); Mean Corpuscular Hemoglobin 33.2 pg (28.0-32.0); Mean Corpuscular Hgb Conc. 34.4 g/dL (32.0-36.0); Mean Corpuscular Volume 96.6 fL (80.0-100.0); Monocytes # (auto) 0.8 10 ^3/uL (0-1.3); Monocytes % (auto) 8.5 % (0.0-12.0); Neutrophils # (auto) 4.7 10 ^3/uL (1.6-8.6); Neutrophils % (auto) 47.7 % (37.0-80.0); Nucleated Red Blood Cells % 0.1 %; Platelet Count (auto) 246 10^3/uL (140-450); Red Blood Cells 4.57 10^6/uL (4.0-5.20); Red Cell Distribution Width 13.5 % (11.8-14.3); White Blood Cell 9.9 10^3/uL (4.4-10.8)
[2024-11-21 05:00] VITALS: BP 109/63; PULSE 66; RESP 14; TEMP 97.9; O2SAT 96
[2024-11-21 05:12] LABS: Albumin 4.5 g/dL (3.2-4.8); Alkaline Phosphatase 92 U/L (46-116); Anion Gap 8 (5-15); BUN/Creatinine Ratio 20.8 (10.0-20.0); Bilirubin, Total 0.3 mg/dL (0.2-1.0); Blood Urea Nitrogen 16 mg/dL (9-23); Calcium 10.2 mg/dL (8.7-10.4); Carbon Dioxide 24 mmol/L (20-31); Chloride 106 mmol/L (98-107); Potassium 3.8 mmol/L (3.5-5.1); Sodium 138 mmol/L (136-145); Total Protein 6.8 g/dL (5.7-8.2)
[2024-11-21 05:22] LABS: Alanine Aminotransferase < 9 U/L (7-40); Aspartate Aminotransferase 8 U/L (13-40); Glucose 108 mg/dL (74-106)
[2024-11-21 08:04] VITALS: BP 114/70; PULSE 71; RESP 20; TEMP 97.6; O2SAT 98
[2024-11-21] MEDS: FUROSEMIDE 40 MG TAB PO SCH (09:28)
[2024-11-21] MEDS: levoFLOXacin 500 MG TAB PO SCH (09:28)
[2024-11-21] MEDS: CARVEDILOL 3.125 MG TAB PO SCH (09:29)
[2024-11-21] MEDS ORDERED: FUROSEMIDE 40 MG TAB PO SCH (10:00)
[2024-11-21] MEDS ORDERED: CARVEDILOL 3.125 MG TAB PO SCH (10:00)
[2024-11-21 11:47] VITALS: BP 116/76; PULSE 86; RESP 18; TEMP 98; O2SAT 98
--- NOTE | 2024-11-21 14:00 | DVHPN2 ---
Progress Note - Dictate Date Seen: Nov 21, 2024 Medical Necessity Reason Pt with a Central, PICC or Fol: No Subjective PT WITH DIAPHRAGMATIC STIMULATION AGAIN HAS BEEN ADJUSTED 3 TIMES WHEN ADJUSTED NO SX BUT 24 HOURS LATER SHE COMPLAINS OF SX HAPPENED WITH PREVIOUS IMPLANT WELL WHEN WE MENTIONED THERE WAS NO NEED FOR LV LEAD WEEKS LATER THE RV AND RA LEADS APPEARED RETRACTED NOW AICD REVISED NOW AGAIN THE SAME PROBLEM The patient who is 53 years old with a history of dilated cardiomyopathy, normal coronary anatomy, ejection-fraction of 30%. The patient has been admitted on numerous occasions since the implantation of the Bi-V AICD to the Emergency Room and has also been seen on numerous occasions in the clinic as well. Initially after the device was implanted, she was complaining there was an infection. There was no infection in the lead nor in the pocket, nor in the skin. Empirically, the patient was put on antibiotics. Since the device was implanted, she has been complaining of many issues including chest pain, palpitations and device shocking. Every time we have seen initially about a month after the device was placed, the LV lead was displaced. Then following that, there was retraction of the RV lead and RA leads noted on chest x-ray as well. It is clear that the patient has been manipulating the leads for this malfunction. She is very noncompliant. She is drug seeking as well. The patient has been seen and set in [facility] numerous occasions, she has actually been admitted as well and now she is insistent on replacing the lead because psychologically she is convinced that the LV lead not being in position and is causing her symptoms. The LV lead parameters have been discontinued or switched off and therefore, there is no reason for her to have any irritation. There were no PVCs, PACs documented. The lead was still in the coronary sinus, and therefore, there is no chance of any irritability from the coronary sinus lead in itself. This is psychologically, the patient is convinced that was causing her chest pain and because of that, we elected to reposition again the RV lead and the LV lead since they also appeared to be retracted, although they are functioning appropriately. PERTINENT MEDICAL HISTORY: Significant for tobacco use, COPD. Echocardiogram shows ejection fraction of 30%. She denies any fever or chills, melena, hematochezia, hematemesis, hemoptysis. She had one episode of apparent shock delivered by the device. Also chest pain, shortness of breath, palpitations. All evaluation has been negative. Evaluating the permanent AICD at the time of the palpitations revealed no SVT or VT and strokes have always been negative. Coronary angiography showed normal coronary anatomy, therefore, unlikely to have chest pain related to coronary artery disease. She has in fact complained to the insurance company that we were not paying attention to her. Despite the fact that she has been seen in the clinic almost 10 times almost on a weekly basis initially for apparent infection, which she did not have, subsequently for chest pain and palpitation. Multiple ER visits in addition to clinic visits. vital signs Vital Sign Date Time Temp Pulse Resp B/P (MAP) Pulse Ox O2 Delivery O2 Flow Rate FiO2 11/21/24 11:47 98.0 86 18 116/76 (89) 98 98.0 11/20/24 23:40 Room Air* 0 21 medications Current Medications Medications Dose Ordered Sig/Emili Route Start Time Stop Time Status Last Admin Dose Admin Morphine Sulfate 2 mg Q30M PRN IV 11/20/24 23:00 Levofloxacin 500 mg DAILY PO 11/21/24 10:00 11/21/24 09:28 500 MG Carvedilol 3.125 mg Q12HR PO 11/21/24 10:00 11/21/24 09:29 3.125 MG Furosemide 20 mg DAILY PO 11/21/24 10:00 11/21/24 09:28 20 MG Atorvastatin Calcium 40 mg HS PO 11/21/24 22:00 objective PHYSICAL EXAMINATION: VITAL SIGNS: Blood pressure is 132/80, pulse of 70 and regular, O2 saturation 98%. HEENT/NECK: Pupils are equal, reactive. Neck is supple. Carotid pulses are 2+ symmetrical. Sclerae anicteric. Oral mucosa moist. Posterior pharynx without any exudate. No nuchal rigidity. Carotid pulses are 2+ symmetrical. No cervical adenopathy, no supraclavicular adenopathy. PULMONARY: Diffuse scattered rhonchi. Otherwise, unremarkable. CARDIOVASCULAR: Regular rate. PMI is slightly diffuse, laterally and inferiorly displaced. ABDOMEN: Soft. No epigastric tenderness, no suprapubic tenderness, no CVA tenderness. Stool guaiac negative. NEUROLOGIC: The patient is intact. laboratory and microbiology Laboratory Tests 11/21/24 04:00 Test 11/21/24 04:00 Range/Units Serum Glucose 108 H 74-106 mg/dL Problem List DIAPHRAGMATIC STIMULATION AGAIN RV LEAD AND RA LEAD APPEARS RETRACTED COMPARED TO 11/17/2024 LV LEAD ALSO APPEARS TO BE PULLED BACK DISPLACEMENT NOW RESULTING IN STIMULATION WILL REPROGRAM AICD Assessment/Plan REPROGRAM AICD Plan discussed with: Patient ISIDORO FERRER MD Nov 21, 2024 14:00
[2024-11-21] MEDS ORDERED: CARV6.2517 PO (14:25)
--- NOTE | 2024-11-21 14:48 | DVHDS2 ---
Discharge Summary Date of Admission Nov 20, 2024 at 22:55 Date of Discharge: Nov 21, 2024 Admitting Diagnosis DIAPHRAGMATIC STIMULATION Labs/Diagnostic Data: Laboratory Results Test 11/21/24 04:00 11/21/24 01:00 11/21/24 00:25 White Blood Count 9.9 10^3/uL (4.4-10.8) Red Blood Count 4.57 10^6/uL (4.0-5.20) Hemoglobin 15.2 g/dL (12.2-16.2) Hematocrit 44.1 % (36.0-46.0) Mean Corpuscular Volume 96.6 fL (80.0-100.0) Mean Corpuscular Hemoglobin 33.2 pg (28.0-32.0) Mean Corpuscular Hemoglobin Concent 34.4 g/dL (32.0-36.0) Red Cell Distribution Width 13.5 % (11.8-14.3) Platelet Count 246 10^3/uL (140-450) Mean Platelet Volume 7.5 fL (6.9-10.8) Neutrophils (%) (Auto) 47.7 % (37.0-80.0) Lymphocytes (%) (Auto) 40.1 % (10.0-50.0) Monocytes (%) (Auto) 8.5 % (0.0-12.0) Eosinophils (%) (Auto) 3.2 % (0.0-7.0) Basophils (%) (Auto) 0.5 % (0.0-2.0) Neutrophils # (Auto) 4.7 10 ^3/uL (1.6-8.6) Lymphocytes # (Auto) 4.0 10 ^3/uL (0.4-5.4) Monocytes # (Auto) 0.8 10 ^3/uL (0-1.3) Eosinophils # (Auto) 0.3 10 ^3/uL (0-0.8) Basophils # (Auto) 0 10 ^3/uL (0-0.2) Nucleated Red Blood Cells 0.1 % Sodium Level 138 mmol/L (136-145) Potassium Level 3.8 mmol/L (3.5-5.1) Chloride Level 106 mmol/L (98-107) Carbon Dioxide Level 24 mmol/L (20-31) Anion Gap 8 (5-15) Blood Urea Nitrogen 16 mg/dL (9-23) Creatinine 0.77 mg/dL (0.550-1.02) Glomerular Filtration Rate Calc 93 mL/min (>90) BUN/Creatinine Ratio 20.8 (10.0-20.0) Serum Glucose 108 mg/dL (74-106) Hemoglobin A1c 5.6 % A1C (<5.7) Calcium Level 10.2 mg/dL (8.7-10.4) Total Bilirubin 0.3 mg/dL (0.2-1.0) Aspartate Amino Transferase (AST) 8 U/L (13-40) Alanine Aminotransferase (ALT) < 9 U/L (7-40) Alkaline Phosphatase 92 U/L (46-116) Total Protein 6.8 g/dL (5.7-8.2) Albumin 4.5 g/dL (3.2-4.8) Vitamin B12 Level 396 pg/mL (211-911) Vitamin D 25-Hydroxy 23.4 ng/mL (30.0-100) Urine Color Yellow (Yellow) Urine Clarity Clear (Clear) Urine pH 5.5 (5.0-9.0) Urine Specific [place] 1.026 (1.001-1.035) Urine Protein Negative (Negative) Urine Ketones Negative (Negative) Urine Blood 1+ /uL (Negative) Urine Nitrite Negative (Negative) Urine Bilirubin Negative (Negative) Urine Urobilinogen Normal mg/dL (Negative) Urine Leukocyte Esterase Negative /uL (Negative) Urine RBC 7 /hpf (0 - 4) Urine WBC 2 /hpf (0 - 5) Urine Squamous Epithelial Cells Few /hpf (<5) Urine Bacteria None seen /hpf (None Seen) Urine Mucus Few (None Seen) Urine Glucose Normal mg/dL (Normal) Urine Opiates Screen Neg (NEGATIVE) Urine Fentanyl Screen Neg (NEGATIVE) Urine Barbiturates Screen Neg (NEGATIVE) Urine Phencyclidine Screen Neg (NEGATIVE) Urine Amphetamines Screen Neg (NEGATIVE) Urine Benzodiazepines Screen Neg (NEGATIVE) Urine Cocaine Screen Neg (NEGATIVE) Urine Cannabinoids Screen Neg (NEGATIVE) Prothrombin Time 10.9 sec (9.3-11.8) Prothrombin Time INR 1.03 (0.9-1.15) Activated Partial Thromboplast Time 27.6 SEC (24.5-34.5) Troponin I High Sensitivity 11 ng/L (</=34) B-Type Natriuretic Peptide 9.91 pg/mL (0-100) Thyroid Stimulating Hormone (TSH) 3.01 uIU/mL (0.55-4.78) Other Laboratory Tests 11/21/24 04:00 Brief Hx & Hospital Course: DIAPHRAGMATIC STIMULATION AGAIN RV LEAD AND RA LEAD APPEARS RETRACTED COMPARED TO 11/17/2024 LV LEAD ALSO APPEARS TO BE PULLED BACK DISPLACEMENT NOW RESULTING IN STIMULATION REPROGRAM AICD LV LEAD OFF DC PT HOME Consults/Reason for consult CARDIOLOGY Condition at Discharge: Guarded Final Diagnosis/Problems List DIAPHRAGMATIC STIMULATION AGAIN RV LEAD AND RA LEAD APPEARS RETRACTED COMPARED TO 11/17/2024 LV LEAD ALSO APPEARS TO BE PULLED BACK DISPLACEMENT NOW RESULTING IN STIMULATION REPROGRAM AICD Discharge Disposition: Home Discharge Instruct/Medications Diet: Cardiac 2g Na,low cholest Activity: Light activity Follow Up/Referral: SCHEDULED Medications: CONT HOME MEDS Discharge Statement: "Patient was advised to return to the ER or call 911 if any headaches, dizziness, shortness of breath, chest pain, abdominal pain, bleeding, fevers, or worsening of medical condition. Patient was counseled about treatment plan, medications, possible side effects, patientverbalized understanding. All questions were answered to the best of my ability. This discharge took greater then 30 minutes in planning, reviewing documentation, counseling the patient, and discussing with other team members." ASSESSMENT ASSESSMENT Assessment ISIDORO FERRER MD Nov 21, 2024 14:48
[2024-11-21] MEDS ORDERED: ATORVASTATIN 20 MG TAB PO SCH (22:00)
--- NOTE | 2024-11-30 07:03 | ECG ---
[facility] Test Date: 2024-11-21 Test Time: 12:22:19 Pat Name: ISAK MALCOLM Department: Emergency Room Room: [address] [place] [address] Gender: F Flaring Machine Operator: MERCEDEZ HUNTER LVN : 1970 Requested By: CLYDE FOSTER Order Number: [id number] Reading MD: Measurements Intervals [place] Rate: 102 P: 80 [place]: 125 QRS: 77 QRSD: 86 T: 79 QT: 368 QTc: 480 Interpretive Statements Incomplete analysis due to missing data in precordial lead(s) Atrial-sensed ventricular-paced rhythm No further analysis attempted due to paced rhythm Missing lead(s): V4 Please click the below link to view image of tracing.
--- NOTE | 2024-11-30 07:03 | ECG ---
[facility] Test Date: 2024-11-21 Test Time: 12:20:34 Pat Name: ISAK MALCOLM Department: Emergency Room Room: [address] [place] [address] Gender: F Per Diem Rn: MERCEDEZ HUNTER LVN : 1970 Requested By: CLYDE FOSTER Order Number: [id number] Reading MD: Measurements Intervals [place] Rate: 80 P: 84 [place]: 148 QRS: 90 QRSD: 78 T: 91 QT: 367 QTc: 424 Interpretive Statements Incomplete analysis due to missing data in precordial lead(s) Atrial-sensed ventricular-paced rhythm No further analysis attempted due to paced rhythm Missing lead(s): V4 Please click the below link to view image of tracing.
--- NOTE | 2024-11-30 07:03 | ECG ---
[facility] Test Date: 2024-11-21 Test Time: 03:17:45 Pat Name: ISAK MALCOLM Department: ED Room: [address] [place] [address] Gender: F Lepidopterist: ARELI : 1970 Requested By: CLYDE FOSTER Order Number: [id number] Reading MD: Measurements Intervals [place] Rate: 66 P: 70 [place]: 144 QRS: 74 QRSD: 96 T: 84 QT: 414 QTc: 434 Interpretive Statements Atrial-sensed ventricular-paced complexes No further analysis attempted due to paced rhythm Please click the below link to view image of tracing.
== END 2024-11-21 16:05 | disposition home or self-care (01) | DRG 206 ==
LOC: ER 14:37 → TELE 22:55
PROVIDERS: ADMIT Student in an Organized Health Care Education/Training Program; ATTEND Student in an Organized Health Care Education/Training Program
DX: T82.111A Breakdown (mechanical) of cardiac pulse generator (battery), initial encounter (principal); I50.20 Unspecified systolic (congestive) heart failure; I48.91 Unspecified atrial fibrillation; J44.9 Chronic obstructive pulmonary disease, unspecified; Z91.199 Patient's noncompliance with other medical treatment and regimen due to unspecified reason; Z79.899 Other long term (current) drug therapy; Y84.8 Other medical procedures as the cause of abnormal reaction of the patient, or of later complication, without mention of misadventure at the time of the procedure; Y92.89 Other specified places as the place of occurrence of the external cause
CPT/HCPCS: 36415; 71045; 80048; 80053; 80307; 81001; 82306; 82607; 83036; 83880; 84443; 84484; 85025; 85610; 85730; 93005; 99291; G0378

== ENCOUNTER → 2024-11-28 | Outpatient (CLI) | payer MEDICAID ==
[~2024-11-28] MED LIST changes: +CARV6.2517 PO; -FURO20TA4 GT
== END | disposition home or self-care (01) ==
LOC: RT 09:13
PROVIDERS: ATTEND Internal Medicine Pulmonary Disease
DX: R06.09 Other forms of dyspnea (principal); F17.210 Nicotine dependence, cigarettes, uncomplicated
CPT/HCPCS: 94060; 94618; 94727; 94729